=== PATIENT | male | born 1995 | race Caucasian/White ===

== ENCOUNTER 2025-03-15 11:03 | Outpatient (CLI) | payer OTHER, SELFPAY | END 2025-03-15 11:04 | disposition home or self-care (01) | LOC: NFLDREF 03-27 02:35 | PROVIDERS: PCP Family Medicine; Visit Provider Family Medicine | DX: Z13.220 Encounter for screening for lipoid disorders (principal); M25.572 Pain in left ankle and joints of left foot; M25.512 Pain in left shoulder; Z13.1 Encounter for screening for diabetes mellitus; Z00.00 Encounter for general adult medical examination without abnormal findings | CPT/HCPCS: 80053; 80061 ==